=== PATIENT | male | born 1970 | race Caucasian/White ===

== ENCOUNTER 2017-12-09 21:23 | Emergency (ER) | payer OTHER ==
[~2017-12-09] VITALS: Ht 177.8 cm; Wt 100.7 kg
[2017-12-09 21:36] VITALS: BP_SYST 112
[2017-12-09 23:01] LABS: BASOPHILS % (AUTO) 0.5 % (0.0-2.0); EOSINOPHILS # (AUTO) 0.1 K/uL (0.0-0.4); EOSINOPHILS % (AUTO) 1.2 % (0.0-4.0); HEMATOCRIT 43.6 % (36-54); HEMOGLOBIN 14.3 g/dL (14.0-18.0); LYMPHOCYTES # (AUTO) 2.2 K/uL (1.0-5.5); LYMPHOCYTES % (AUTO) 33.4 % (20.5-51.5); MEAN CORPUSCULAR HEMOGLOBIN 29 pg (27-31); MEAN CORPUSCULAR HGB CONC 33 % (32-36); MEAN CORPUSCULAR VOLUME 88 fL (79.0-98.0); MONOCYTES # (AUTO) 0.4 K/uL (0.0-1.0); MONOCYTES % (AUTO) 6.7 % (1.7-9.3); NEUTROPHILS % (AUTO) 58.2 % (40.0-70.0); PLATELET COUNT (AUTO) 198 K/uL (130-430); RED BLOOD CELL COUNT(AUTO) 4.94 MIL/uL (4.2-6.2); RED CELL DISTRIBUTION WIDTH 12.1 % (9.0-15.0); WHITE BLOOD COUNT (AUTO) 6.7 K/uL (4.8-10.8)
[2017-12-09 23:22] LABS: CALCIUM 9.2 mg/dL (8.4-11.0); CREATININE 0.97 mg/dL (0.55-1.30); POTASSIUM 4.2 mmol/L (3.5-5.1)
[2017-12-09 23:27] LABS: ALBUMIN 3.7 g/dL (3.4-4.8); TOTAL BILIRUBIN 0.5 mg/dL (0.0-1.0)
[2017-12-10] MEDS ORDERED: NS 1000 ML BAG IV ONE (00:15)
[2017-12-10] MEDS ORDERED: cefTRIAXone 1 GM in D5W 50 ML IV ONE (00:15)
[2017-12-10] MEDS ORDERED: cefTRIAXone 1 GM VIAL ONE (00:56)
[2017-12-10 01:58] VITALS: BP_SYST 117
== END 2017-12-10 01:58 | disposition home or self-care (01) ==
LOC: SED 21:23
DX: E11.621 Type 2 diabetes mellitus with foot ulcer (principal); F32.9 Major depressive disorder, single episode, unspecified; F17.200 Nicotine dependence, unspecified, uncomplicated; Z88.0 Allergy status to penicillin
CPT/HCPCS: 36415; 80053; 83605; 85025; 87040; 96365; 99284; J0696; J7030; J7060

== ENCOUNTER 2018-04-21 18:13 | Emergency (ER) | payer OTHER ==
[~2018-04-21] VITALS: Ht 177.8 cm; Wt 88.0 kg
[2018-04-21 18:19] VITALS: BP_SYST 132
[2018-04-21] MEDS ORDERED: NS 500 ML IV SCH (18:43)
[2018-04-21] MEDS ORDERED: INSULIN REGULAR, HUMAN 10 UNITS/0.1 ML INJ IVP ONE ×2 (18:45→21:15)
[2018-04-21 19:03] LABS: BASOPHILS % (AUTO) 0.5 % (0.0-2.0); EOSINOPHILS % (AUTO) 0.5 % (0.0-4.0); HEMATOCRIT 37.7 % (36-54); HEMOGLOBIN 12.5 g/dL (14.0-18.0); LYMPHOCYTES # (AUTO) 1.7 K/uL (1.0-5.5); LYMPHOCYTES % (AUTO) 19.6 % (20.5-51.5); MEAN CORPUSCULAR HEMOGLOBIN 29 pg (27-31); MEAN CORPUSCULAR HGB CONC 33 % (32-36); MEAN CORPUSCULAR VOLUME 88 fL (79.0-98.0); MONOCYTES # (AUTO) 0.6 K/uL (0.0-1.0); MONOCYTES % (AUTO) 7.3 % (1.7-9.3); NEUTROPHILS # (AUTO) 6.2 K/uL (1.8-7.7); NEUTROPHILS % (AUTO) 72.1 % (40.0-70.0); PLATELET COUNT (AUTO) 318 K/uL (130-430); RED BLOOD CELL COUNT(AUTO) 4.29 MIL/uL (4.2-6.2); RED CELL DISTRIBUTION WIDTH 12.1 % (9.0-15.0); WHITE BLOOD COUNT (AUTO) 8.5 K/uL (4.8-10.8)
[2018-04-21 19:20] LABS: CALCIUM 9.5 mg/dL (8.4-11.0); CREATININE 0.94 mg/dL (0.55-1.30); POTASSIUM 3.8 mmol/L (3.5-5.1)
[2018-04-21 19:25] LABS: ALBUMIN 3.2 g/dL (3.4-4.8); TOTAL BILIRUBIN 0.5 mg/dL (0.0-1.0)
[2018-04-21] MEDS ORDERED: NS 500 ML IV ONE (19:45)
[2018-04-21] MEDS ORDERED: SITA50TA3 PO (20:54)
[2018-04-21] MEDS ORDERED: LISI-209 PO (20:54)
[2018-04-21] MEDS ORDERED: SSNOVOLOG SUBCUT (20:54)
[2018-04-21] MEDS ORDERED: INSU100V9 SQ (20:54)
[2018-04-21] MEDS ORDERED: PRO10 PO (20:54)
[2018-04-21] MEDS ORDERED: PRAZ1CAP2 PO (20:54)
[2018-04-21] MEDS ORDERED: GLU500 PO (20:54)
[2018-04-21] MEDS ORDERED: ERGO400C2 PO (20:54)
[2018-04-21] MEDS ORDERED: NACL 0.9% 1,000 ML IV ONE (21:15)
[2018-04-21] MEDS ORDERED: POTASSIUM CHLORIDE 20 MEQ/PKT PACKET PO ONE (21:15)
[2018-04-21] MEDS ORDERED: IBUPROFEN 800 MG TABLET PO ONE (22:15)
[2018-04-21 22:40] VITALS: BP_SYST 128
== END 2018-04-21 22:40 | disposition home or self-care (01) ==
LOC: SED 18:13
DX: E11.621 Type 2 diabetes mellitus with foot ulcer (principal); E11.65 Type 2 diabetes mellitus with hyperglycemia; D64.9 Anemia, unspecified; R03.0 Elevated blood-pressure reading, without diagnosis of hypertension; F32.9 Major depressive disorder, single episode, unspecified; Z88.0 Allergy status to penicillin; Z79.899 Other long term (current) drug therapy
CPT/HCPCS: 36415; 80053; 85025; 93005; 96361; 96374; 99285; J1815; J7030; J7050

== ENCOUNTER 2018-04-23 10:53 | Outpatient (CLI) | payer OTHER ==
[~2018-04-23 10:53] MED LIST: ERGO400C2 PO; GLU500 PO; INSU100V9 SQ; LISI-209 PO; PRAZ1CAP2 PO; PRO10 PO; SITA50TA3 PO; SSNOVOLOG SUBCUT
[2018-04-23 11:25] LABS: BASOPHILS % (AUTO) 0.7 % (0.0-2.0); EOSINOPHILS % (AUTO) 0.5 % (0.0-4.0); HEMATOCRIT 34.5 % (36-54); HEMOGLOBIN 11.5 g/dL (14.0-18.0); LYMPHOCYTES # (AUTO) 1.4 K/uL (1.0-5.5); LYMPHOCYTES % (AUTO) 21.8 % (20.5-51.5); MEAN CORPUSCULAR HEMOGLOBIN 29 pg (27-31); MEAN CORPUSCULAR HGB CONC 33 % (32-36); MEAN CORPUSCULAR VOLUME 88 fL (79.0-98.0); MONOCYTES # (AUTO) 0.6 K/uL (0.0-1.0); NEUTROPHILS # (AUTO) 4.4 K/uL (1.8-7.7); PLATELET COUNT (AUTO) 271 K/uL (130-430); RED BLOOD CELL COUNT(AUTO) 3.91 MIL/uL (4.2-6.2); RED CELL DISTRIBUTION WIDTH 12.2 % (9.0-15.0); WHITE BLOOD COUNT (AUTO) 6.4 K/uL (4.8-10.8)
[2018-04-23 11:35] LABS: ALBUMIN 2.9 g/dL (3.4-4.8); CALCIUM 8.6 mg/dL (8.4-11.0); CREATININE 1.33 mg/dL (0.55-1.30); POTASSIUM 5.3 mmol/L (3.5-5.1); TOTAL BILIRUBIN 0.3 mg/dL (0.0-1.0)
== END 2018-04-23 18:17 | disposition home or self-care (01) ==
LOC: SLB 10:53
PROVIDERS: ATTEND Specialist
DX: E11.9 Type 2 diabetes mellitus without complications (principal); M86.8X8 Other osteomyelitis, other site
CPT/HCPCS: 36415; 80053; 80061; 85025